=== PATIENT | male | born 1990 | race Caucasian/White ===

== ENCOUNTER 2018-03-15 20:26 | Emergency (ER) | payer OTHER ==
[~2018-03-15] VITALS: Ht 182.9 cm; Wt 115.3 kg
[2018-03-15 20:32] VITALS: TEMP 37.1; Ht 182.9 cm; Wt 115.3 kg
[2018-03-15] MEDS ORDERED: SODIUM CHLORIDE 0.9% 1000ML 500 ML IV STA (20:44)
[2018-03-15] MEDS ORDERED: ONDANSETRON INJ 2 MG/ML 2 ML VIAL IV STA (20:44)
[2018-03-15] MEDS ORDERED: ACETAMINOPHEN 500 MG TAB PO STA (20:44)
[2018-03-15] MEDS ORDERED: FAMOTIDINE 20MG/5ML IV PUSH IV STA (20:44)
--- NOTE | 2018-03-15 20:59 | DIAGNOSTIC IMAGING REPORT ---
CHEST ONE VIEW PORTABLE CLINICAL HISTORY: Pain, radiating to the abdomen. COMPARISON STUDY: No previous studies for comparison. FINDINGS: The cardiac and mediastinal contours are normal. There is no evidence of focal pulmonary consolidation. There is no evidence of failure. No pleural effusions are visualized.[ No free intraperitoneal air is visualized. IMPRESSION: No active disease in the chest. Electronically signed by: Rob Rubi M.D. 03/15/2018 8:58 PM Dictated Date/Time: 03/15/2018 8:58 PM
[2018-03-15] MEDS ORDERED: OPTIRAY 320 IV PRN (21:15)
--- NOTE | 2018-03-15 21:26 | EMERGENCY ROOM VISIT NOTE ---
History Report prepared by Javon: Maria Esther Mejia Under the Supervision of: Dr. Benedict Loya M.D. First contact with patient: 20:36 Chief Complaint: ILLNESS Stated Complaint: CHILLS,SORE THROAT, STOMACH ACHE, HEADACHE History of Present Illness The patient is a 27 year old male who presents to the Emergency Room with complaints of constant illness for 2 weeks. The patient states that he has middle upper abdominal pain. He notes that eating sometimes makes the pain worse and when it gets bad, he rates it as a 7/10 in severity. He notes that the episodes when it is the worst tend to last for an hour. He states that he gets headaches with the abdominal pain that are sometimes so bad, they remind him of migraines. He states that he also has a sore throat that feels like the right side is swollen. The patient complains of chills, cough, nausea, runny nose, fevers, diaphoresis, being fatigued, and diarrhea. He notes that he has 2- 3 episodes of diarrhea a day. He reports that 2 days ago, he had blood in the diarrhea. His mother notes that all he has done is laid around the house. The patient states that he has tried taking Tylenol, Ibuprofen, and Excedrin with no relief. He notes he last had Tylenol at 0300 this morning. He notes that Gatorade is the only thing that seems to help. The patient denies ever having this before, being on medications for his stomach, having a cold, urinary symptoms, and vomiting. Source of History: patient, parent Onset: 2 weeks ago Position: other (global) Quality: other (illness) Timing: constant Modifying Factors (Relieving): other (Gatorade) Associated Symptoms: + fevers, + chills, + headache, + diaphoresis, + sorethroat, + cough, + nausea, + abdominal pain, + diarrhea, + fatigue, No vomiting, No urinary symptoms Note: The patient complains of the right side of his throat being swollen. The patient denies having a cold. Review of Systems See HPI for pertinent positives & negatives. A total of 10 systems reviewed and were otherwise negative. Past Medical & Surgical Surgical Problems: (1) S/P appendectomy (2) S/P cholecystectomy Family History Patient reports no known family medical history. Social History Smoking Status: Never Smoker Marital Status: single Housing Status: lives with family Current/Historical Medications Scheduled PRN Acetaminophen (Tylenol), 1,000 MG PO DIRECTED PRN for Pain or Fever Ibuprofen (Advil), 200-600 MG PO Q4H PRN for Pain or Fever Allergies Coded Allergies: Penicillins (Verified Allergy, Severe, HIVES AN INFANT, 03/15/18) Physical Exam Vital Signs Date Time Temp Pulse Resp B/P (MAP) Pulse Ox O2 Delivery O2 Flow Rate FiO2 03/15/18 22:32 88 18 117/76 98 Room Air 03/15/18 20:32 37.1 98 20 131/78 98 Room Air Physical Exam GENERAL: Patient is in no acute distress. HEENT: No acute trauma, normocephalic atraumatic, mucous membranes moist, no nasal congestion, no scleral icterus. Large tonsils noted. No erythema or exudate. NECK: No stridor, no adenopathy, no meningismus, trachea is midline. LUNGS: Clear to auscultation bilaterally, no wheeze, no rhonchi, breath sounds equal. HEART: Without murmurs gallops or rubs, regular rate and rhythm. ABDOMEN: Soft, moderately tender in the epigastrium, bowel sounds positive, no hernias, no peritonitis. EXTREMITIES: No cyanosis or edema, full range of motion of all the joints without pain or difficulty, no signs for acute trauma. NEUROLOGIC: Oriented x 3, no acute motor or sensory deficits, no focal weakness. SKIN: No rash, no jaundice, mild forehead diaphoresis. Medical Decision & Procedures ER Provider Diagnostic Interpretation: Radiology results as stated below per my review and radiologist interpretation: CHEST ONE VIEW PORTABLE CLINICAL HISTORY: Pain, radiating to the abdomen. COMPARISON STUDY: No previous studies for comparison. FINDINGS: The cardiac and mediastinal contours are normal. There is no evidence of focal pulmonary consolidation. There is no evidence of failure. No pleural effusions are visualized.[ No free intraperitoneal air is visualized. IMPRESSION: No active disease in the chest. Electronically signed by: Rob Rubi M.D. 03/15/2018 8:58 PM Dictated Date/Time: 03/15/2018 8:[address] ABDOMEN & PELVIS With Contrast: No bowel obstruction or wall thickening. Status post appendectomy and cholecystectomy. Radiologist: Heriberto Bender MD Study ready at 23:48 and initial results transmitted at 00:13. Laboratory Results 03/15/18 21:07 Red Blood Count 4.91, Mean Corpuscular Volume 88.6, Mean Corpuscular Hemoglobin 31.0, Mean Corpuscular Hemoglobin Concent 34.9, Mean Platelet Volume 9.0 03/15/18 21:07 Test 03/15/18 21:07 03/15/18 22:20 03/15/18 23:10 White Blood Count 10.20 K/uL (4.8-10.8) Red Blood Count 4.91 M/uL (4.7-6.1) Hemoglobin 15.2 g/dL (14.0-18.0) Hematocrit 43.5 % (42-52) Mean Corpuscular Volume 88.6 fL (80-100) Mean Corpuscular Hemoglobin 31.0 pg (25-34) Mean Corpuscular Hemoglobin Concent 34.9 g/dl (32-36) Platelet Count 160 K/uL (130-400) Mean Platelet Volume 9.0 fL (7.4-10.4) RDW Standard Deviation 42.9 fL (36.4-46.3) RDW Coefficient of Variation 13.3 % (11.5-14.5) Neutrophils % (Manual) 23.4 % Lymphocytes % (Manual) 19.8 % Variant Lymphocytes % (manual) 53.2 % Monocytes % (Manual) 2.7 % Eosinophils % (Manual) 0.9 % Neutrophils # (Manual) 2.39 K/uL (1.4-6.5) Total Absolute Neutrophils 2.39 K/uL (1.4-6.5) Lymphocytes # (Manual) 2.02 K/uL (1.2-3.4) Absolute Variant Lymphocytes 5.43 K/uL Total Absolute Lymphocytes 7.45 K/uL (1.2-3.4) Monocytes # (Manual) 0.28 K/uL (0.11-0.59) Eosinophils # (Manual) 0.09 K/uL (0-0.5) Erythrocyte Sedimentation Rate 27 mm/hr (0-14) Anion Gap 8.0 mmol/L (3-11) Est Creatinine Clear Calc Drug Dose 127.6 ml/min Estimated GFR () 101.6 Estimated GFR (Non- 87.7 BUN/Creatinine Ratio 9.2 (10-20) Calcium Level 8.7 mg/dl (8.5-10.1) Magnesium Level 2.3 mg/dl (1.8-2.4) Total Bilirubin 0.6 mg/dl (0.2-1) Aspartate Amino Transf (AST/SGOT) 223 U/L (15-37) Alanine Aminotransferase (ALT/SGPT) 270 U/L (12-78) Alkaline Phosphatase 118 U/L (45-117) Total Protein 8.7 gm/dl (6.4-8.2) Albumin 4.0 gm/dl (3.4-5.0) Globulin 4.7 gm/dl (2.5-4.0) Albumin/Globulin Ratio 0.8 (0.9-2) Lipase 532 U/L (73-393) Thyroid Stimulating Hormone (TSH) 1.490 uIu/ml (0.300-4.500) Hepatitis B Surface Antigen NEG (NEG) Hepatitis C Antibody NEG (NEG) Monoscreen POS (NEG) Urine Color YELLOW Urine Appearance CLEAR (CLEAR) Urine pH 6.0 (4.5-7.5) Urine Specific [place] 1.010 (1.000-1.030) Urine Protein NEG (NEG) Urine Glucose (UA) NEG (NEG) Urine Ketones NEG (NEG) Urine Occult Blood NEG (NEG) Urine Nitrite NEG (NEG) Urine Bilirubin NEG (NEG) Urine Urobilinogen NEG (NEG) Urine Leukocyte Esterase NEG (NEG) Laboratory results reviewed by me. Medications Administered Medications (Trade) Dose Ordered Sig/Tariq Route Start Time Stop Time Status Last Admin Dose Admin Sodium Chloride 500 ml @ 999 mls/hr Q31M STAT IV 03/15/18 20:44 03/15/18 21:14 DC 03/15/18 20:44 999 MLS/HR Ondansetron HCl (Zofran Inj) 4 mg NOW STAT IV 03/15/18 20:44 03/15/18 20:49 DC 03/15/18 21:03 4 MG Famotidine (Pepcid 20mg Iv Push) 20 mg ONE STAT IV 03/15/18 20:44 03/15/18 20:49 DC 03/15/18 21:03 20 MG Acetaminophen (Tylenol Tab) 1,000 mg NOW STAT PO 03/15/18 20:44 03/15/18 20:49 DC 03/15/18 21:03 1,000 MG Sodium Chloride 500 ml @ 999 mls/hr Q31M STAT IV 03/15/18 23:06 03/15/18 23:36 DC 03/15/18 23:09 999 MLS/HR ED Course 2036: The patient was evaluated in room B10. A complete history and physical exam was performed. 2043: Ordered Tylenol Tab 1000 mg PO, Famotidine 20 mg IV, Zofran Inj 4 mg IV, NSS 500 ml @ 999 mls/hr IV. 2299: I reevaluated the patient and updated him and his family on his test results. 2305: Ordered NSS 500 ml @ 999 mls/hr IV. 15: Reevaluated the patient. Discussed results and discharge instructions: He verbalized understanding and agreement. The patient is ready for discharge. Medical Decision Differential diagnoses include gastritis, duodenitis, ulcer, pneumonia, diverticulitis, pancreatitis, bacteremia, UTI, thyroid disorder, strep pharyngitis, viral illness. There is no leukocytosis or concerning anemia. On the white count differential , variant lymphocytes were seen-this is often consistent with mononucleosis. Sed rate mildly elevated at 27. No significant electrolyte abnormality or kidney failure. There was some elevation to the liver enzymes. Lipase also slightly elevated but not high enough to diagnose pancreatitis. Patient appeared to be in a euthyroid state. Blood cultures are pending. Chest film does not show pneumonia or CHF. [place] testing returned positive. Strep testing was negative. Urinalysis does not show infection. Lyme disease testing is pending. The complete hepatitis panel is pending. Abdominal and pelvis CT does not show bowel obstruction, free air or abscess. Patient received IV saline, he received IV Zofran, IV Pepcid and oral Tylenol. He is resting comfortably. The patient appears to have mononucleosis. This certainly would explain his symptoms. He is not toxic. I do think he can be discharged with close outpatient follow-up. Hydration, rest were encouraged. He can use over-the- counter pain meds as needed. He can try Zantac for some stomach upset. If things are worsening, he can return. We can call with any positive hepatitis, Lyme disease or blood culture results. Medication Reconcilliation Current Medication List: was personally reviewed by me Blood Pressure Screening Patient's blood pressure: Normal blood pressure Blood pressure disposition: Did not require urgent referral Impression Primary Impression: Epigastric abdominal pain Additional Impressions: Elevated liver enzymes Mononucleosis Fatigue Scribe Attestation The scribe's documentation has been prepared under my direction and personally reviewed by me in its entirety. I confirm that the note above accurately reflects all work, treatment, procedures, and medical decision making performed by me. Departure Information Dispostion Home / Self-Care Referrals No Doctor, Assigned (PCP) Forms HOME CARE DOCUMENTATION FORM, IMPORTANT VISIT INFORMATION, WORK / SCHOOL INSTRUCTIONS Patient Instructions My [facility] Additional Instructions otc pain meds as needed rest stay well hydrated follow with the [facility] md for a reheck this week use zantac otc for stomach upset--1 tab 2x per day for next few weeks return for worsening symptoms Problem Qualifiers
[2018-03-15 21:44] LABS: HEMATOCRIT 43.5 % (42-52); HEMOGLOBIN 15.2 g/dL (14.0-18.0); MEAN CELL VOLUME 88.6 fL (80-100); MEAN CORPUSCULAR HGB CONC 34.9 g/dl (32-36); PLATELET COUNT 160 K/uL (130-400); RED CELL DISTRIBUTION WIDTH CV 13.3 % (11.5-14.5); RED CELL DISTRIBUTION WIDTH SD 42.9 fL (36.4-46.3)
[2018-03-15 21:57] LABS: CALCIUM 8.7 mg/dl (8.5-10.1); CREATININE 1.14 mg/dl (0.60-1.40); POTASSIUM 3.6 mmol/L (3.5-5.1); TOTAL PROTEIN 8.7 gm/dl (6.4-8.2)
[2018-03-15] MEDS ORDERED: SODIUM CHLORIDE 0.9% 500ML 500 ML IV STA (23:06)
[2018-03-15] MEDS ORDERED: IBUP-1050 PO (23:46)
[2018-03-15] MEDS ORDERED: ACET-1256 PO (23:46)
[2018-03-15 23:50] LABS: HEP C IGG 13 YRS+OLDER_RFLX NEG (NEG)
[2018-03-16 00:23] VITALS: BP 112/71; PULSE 85; O2SAT 98
--- NOTE | 2018-03-16 06:23 | DIAGNOSTIC IMAGING REPORT ---
CT ABD/PELVIS IV AND ORAL CONT CLINICAL HISTORY: Generalized abdominal pain. Possible diverticulitis. COMPARISON STUDY: None. TECHNIQUE: Following the IV administration of 116 mL of Optiray-320, CT scan of the abdomen and pelvis was performed from the lung bases to the proximal femurs. Images are reviewed in the axial, sagittal, and coronal planes. IV contrast was administered without complication. A dose lowering technique was utilized adhering to the principles of ALARA. CT DOSE: 897.61 mGy.cm FINDINGS: Lower chest: There are minimal atelectatic changes at the lung bases. Liver: The contrast-enhanced liver is normal in size, contour, and attenuation. There is no intrahepatic biliary ductal dilatation. The hepatic veins and portal veins are patent. Gallbladder: Surgically absent Spleen: Normal in size and attenuation. Pancreas: Unremarkable. Adrenal glands: Unremarkable. Kidneys: There is symmetric renal cortical enhancement. The kidneys are normal in size without hydronephrosis. Bowel: There are no transition zones indicate bowel obstruction. By history the appendix is surgically absent. There is no acute diverticulitis. Peritoneum: There is no intraperitoneal free air or abdominal ascites. Vasculature: The abdominal aorta is normal in course and caliber. Adenopathy: Gastrohepatic, aortocaval, and iliac lymph nodes are the upper limits of normal in size. Pelvic viscera: The bladder, and pelvic viscera are unremarkable. Skeletal structures: No destructive osseous lesions are seen. IMPRESSION: 1. No evidence of bowel obstruction. No evidence of free air 2. No evidence of acute diverticulitis 3. Surgically absent appendix and gallbladder 4. Multiple abdominal and pelvic lymph nodes at the upper limits of normal in size Electronically signed by: Rob Rubi M.D. 03/16/2018 6:22 AM Dictated Date/Time: 03/16/2018 6:19 AM
[2018-03-18 11:47] LABS: HEPATITIS A IGM TC 51813E NON-REACTIVE (NON-REACTIVE); HEPATITIS B CORE IGM TC51854R NON-REACTIVE (NON-REACTIVE)
== END 2018-03-16 00:23 | disposition home or self-care (01) ==
LOC: C.EDB 20:28
DX: R10.13 Epigastric pain (principal); R94.5 Abnormal results of liver function studies; B27.90 Infectious mononucleosis, unspecified without complication; R53.83 Other fatigue; Z88.0 Allergy status to penicillin; Z90.49 Acquired absence of other specified parts of digestive tract; Z90.89 Acquired absence of other organs